=== PATIENT | male | born 1990 | race Native Hawaiian/Other Pacific Islander ===

== ENCOUNTER 2016-12-16 01:52 | Emergency (ER) | payer BC ==
[~2016-12-16] VITALS: Ht 185.4 cm; Wt 117.9 kg
[2016-12-16 02:39] LABS: PLATELET COUNT 200 K/uL (142-355)
[2016-12-16 02:52] LABS: POTASSIUM 3.5 mmol/L (3.6-5.2); SODIUM 139 mmol/L (136-145)
[2016-12-16 08:58] VITALS: TEMP 98
[2016-12-16 10:58] VITALS: BP 123/69
== END 2016-12-16 11:05 | disposition home or self-care (01) ==
LOC: ED 01:52
DX: K80.20 Calculus of gallbladder without cholecystitis without obstruction (principal); K82.9 Disease of gallbladder, unspecified
CPT/HCPCS: 36415; 80053; 82150; 83690; 85027; 96361; 96374; 96375; 99284; J1170; J2405